=== PATIENT | female | born 1990 | race Caucasian/White ===

== ENCOUNTER 2021-04-25 20:08 | Emergency (ER) | payer OTHER ==
[2021-04-25] MEDS ORDERED: BENADRYL25 MG PO (21:36)
[2021-04-25] MEDS ORDERED: PREDNISONE 20 M20 MG PO (21:36)
== END 2021-04-25 21:57 | disposition home or self-care (01) ==
LOC: ER1 20:08
DX: L27.0 Generalized skin eruption due to drugs and medicaments taken internally (principal); T50.995A Adverse effect of other drugs, medicaments and biological substances, initial encounter; Z86.73 Personal history of transient ischemic attack (TIA), and cerebral infarction without residual deficits; F17.290 Nicotine dependence, other tobacco product, uncomplicated
CPT/HCPCS: 96374; 96375; 99283; J1100; J1200

== ENCOUNTER 2022-02-26 16:53 | Inpatient (IN) | payer OTHER ==
[~2022-02-26] VITALS: Ht 167.6 cm; Wt 106.6 kg
[~2022-02-26 16:53] MED LIST: BENADRYL25 MG PO; PREDNISONE 20 M20 MG PO
[2022-02-26 17:57] LABS: HEMOGLOBIN 11.3 gm/dl (12.3-15.3); RED BLOOD COUNT 3.79 M/UL (4.00-5.10); WHITE BLOOD COUNT 9.6 K/UL (4.5-11.0)
[2022-02-26] MEDS ORDERED: ZYRTEC10 MG PO (18:48)
[2022-02-26] MEDS ORDERED: FLONASE 0.05% N16 GM (18:48)
[2022-02-28 06:30] LABS: HEMOGLOBIN 11.2 gm/dl (12.3-15.3)
[2022-03-01] MEDS ORDERED: DOCUSATE SODIU100 MG PO (11:16)
[2022-03-01] MEDS ORDERED: IBUPROFEN600 MG PO (11:16)
== END 2022-03-01 15:20 | disposition home or self-care (01) | DRG 806 ==
LOC: GENOP 16:53 → OB 17:29
PROVIDERS: ADMIT Obstetrics & Gynecology
PROC: 10E0XZZ Delivery of Products of Conception, External Approach (ICD-10-PCS; principal; 2022-02-27)
PROC: 0KQM0ZZ Repair Perineum Muscle, Open Approach (ICD-10-PCS; 2022-02-27)
PROC: 4A1HXCZ Monitoring of Products of Conception, Cardiac Rate, External Approach (ICD-10-PCS; 2022-02-27)
PROC: 3E033VJ Introduction of Other Hormone into Peripheral Vein, Percutaneous Approach (ICD-10-PCS; 2022-02-27)
PROC: 3E0234Z Introduction of Serum, Toxoid and Vaccine into Muscle, Percutaneous Approach (ICD-10-PCS; 2022-02-27)
DX: O36.5930 Maternal care for other known or suspected poor fetal growth, third trimester, not applicable or unspecified (principal); O98.32 Other infections with a predominantly sexual mode of transmission complicating childbirth; Z37.0 Single live birth; Z3A.37 37 weeks gestation of pregnancy; Z20.822 Contact with and (suspected) exposure to COVID-19; Z88.0 Allergy status to penicillin; Z88.2 Allergy status to sulfonamides; Z28.310 Unvaccinated for COVID-19; Z91.018 Allergy to other foods; Z82.49 Family history of ischemic heart disease and other diseases of the circulatory system; Z81.8 Family history of other mental and behavioral disorders; A60.00 Herpesviral infection of urogenital system, unspecified; Z23 Encounter for immunization
CPT/HCPCS: 36415; 81001; 82800; 82962; 85014; 85018; 85025; 90715; J2590; J7120; U0002